=== PATIENT | female | born 1975 | race Caucasian/White ===

== ENCOUNTER → 2021-12-18 08:56 | Outpatient (CLI) | payer OTHER, SELFPAY ==
--- NOTE | ~2021-12-18 | CT_ITS ---
EXAMINATION: CT LE LT wo con DATE: 12/18/2021 09:20 INDICATION: Anterior cruciate ligament graft tear. Subsequent encounter. TECHNIQUE: Computed tomography (CT) of the left knee was performed without intravenous contrast. Auto mated exposure control and iterative reconstruction technique were employed. The dose-length product was 209.88 mGy-cm. COMPARISON: None FINDINGS: Bone alignment is normal. No fracture. There are changes of anterior cruciate ligament isaac nstruction with tunnels in the distal femur and proximal tibia. There is mild tricompartmental osteoa rthritis characterized by marginal osteophytes. No joint space narrowing. There is a small knee joint effusion. IMPRESSION: 1. Mild left knee osteoarthritis. 2. Small left knee joint effusion. 3. Changes of anterior cruciate ligament reconstruction. Note that the graft itself is not well evalu ated by CT. Reviewed, dictated and finalized at location A. IMPRESSION: 1. Mild left knee osteoarthritis. 2. Small left knee joint effusion. 3. Changes of anterior cruciate ligament reconstruction. Note that the graft it self is not well evaluated by CT.
== END ==
DX: T84.89XD Other specified complication of internal orthopedic prosthetic devices, implants and grafts, subsequent encounter (principal); M17.12 Unilateral primary osteoarthritis, left knee; M25.462 Effusion, left knee
CPT/HCPCS: 73700